=== PATIENT | male | born 1985 | race African-American/Black ===

== ENCOUNTER → 2020-08-16 13:49 | Outpatient (REF) | payer OTHER, SELFPAY ==
--- NOTE | 2020-08-16 13:54 | CA_ITS ---
Transthoracic Echocardiogram Patient (Last, First, Middle): Benjamín García, Gender: Male Date of : 1985 Age: 35 Procedure Date: 08/16/2020 Procedure Type: Transthoracic Echocardiogram Location: OP Height: 175.26 cm Weight: 95.26 kg BSA: 2.11 m2 Heart Rate: bpm BP: 122 / 68 mmHg Automatic Blocker: Referring MD: Justin Stahl [facility] Symptoms: R01.1 - Cardiac murmur, unspecified Study Quality: Good ECG Rhythm: Sinus Conclusions: - Normal left ventricular size and systolic function. - There is mildly increased left ventricular wall thickness. - Diastolic function is normal for age. - No significant valvular pathology noted. Findings Left Ventricle Normal left ventricular size and systolic function. There is mildly increased left ventricular wall thickness. The visually estimated ejection fraction is between 55-60%. There is no evidence of regional wall motion abnormalities. Diastolic function is normal for age. Right Ventricle Normal right ventricular cavity size and systolic function. Atria Both atria are normal in size. There is no evidence of interatrial shunt by color Doppler. Aortic Valve Normal aortic valve structure and function. There is no aortic valve stenosis. There is no aortic valve regurgitation. Mitral Valve Normal mitral valve structure and function. There is no mitral valve regurgitation. There is no mitral valve stenosis. Pulmonic Valve Normal pulmonic valve structure and function. There is trace pulmonic valve regurgitation. Tricuspid Valve Normal tricuspid valve structure and function. There is trace tricuspid valve regurgitation. Normal right atrial pressure. There is no evidence of pulmonary hypertension. Great Vessels All visible segments of the aorta are normal in size. The visualized portions of the pulmonary artery and branches are normal. Venous The inferior vena cava is normal in size and collapses greater than 50% with inspiration. Pericardium/Pleural There is no evidence of pericardial effusion. Prior Study Comparison No prior study available for comparison. Measurements 2D Linear Measurements IVSd: 1.15 0.6-0.9/0.6-1.0 cm LVIDd: 5.13 3.9-5.3/4.2-5.9 cm LVIDd Index: 2.43 2.4-3.2/2.2-3.1 cm/m2 LVIDs: 3.16 2.0-3.6 cm LVPWd: 1.15 0.7-1.1 cm Ao Root: 3.10 2.1-3.5 cm LA Diam: 4.00 2.7-3.8/3.0-4.0 cm LAIDs Index: 1.90 1.5-2.3 cm/m2 LV Mass: 286.17 67-162/88-224 g LV Mass Index: 135.63 43-95/49-115 g/m2 LVOT Diam: 2.50 3.0+(-)1.3 cm Mitral Valve MV Pk E: 1.00 MV PK A: 0.89 MV Decel Time: 155.00 E/A: 1.10 E'Lateral: 15.10 E'Medial: 11.50 E/E' Med: 8.70 E/E' Lat: 6.60 PHT: 45.00 MVA PHT: 4.89 Decel [place]: 6.48 Aortic Valve AoV Pk Arnel: 1.64 AoV Mn Arnel: 1.01 AoV VTI: 0.31 AoV Pk Grad: 11.00 Aov Mn Grad: 5.00 ZAID Cont.VTI: 3.17 LVOT LVOT Pk Arnel: 1.15 LVOT Mn Arnel: 0.75 LVOT VTI: 0.20 LVOT Pk Grad: 5.00 LVOT Mn Grad: 3.00 LVOT Diam: 2.50 LVOT Area: 4.91 Diastolic Function MV Pk E: 1.00 MV Pk A: 0.89 E/A: 1.10 E'Medial: 11.50 E/E' Med: 8.70 E' Laterial: 15.10 E/E' Lat: 6.60 Tricuspid Valve TR Pk Arnel: 2.17 TR Pk Grad: 19.00 RA Press: 3.00 RVSP: 22.00 Great Vessels Aorta Ao Root-2D: 3.10 2.0-3.7 cm Ao Asc: 3.00 2.1-3.4 cm Pulmonary Valve PV Pk Arnel: 1.41 Peak PV Grad: 8.00 Updated in Other Vendor System with Status of Final Claudy Contreras MD electronically signed on 08/18/2020 6:41:13 AM with status of Final
== END ==
LOC: HO.CARD 13:49
PROVIDERS: PCP Nurse Practitioner Family; Visit Provider Nurse Practitioner Family
DX: R01.1 Cardiac murmur, unspecified (principal)
CPT/HCPCS: 93306

== ENCOUNTER 2020-09-09 11:30 | Outpatient (REF) | payer OTHER, SELFPAY ==
[2020-09-09 14:15] LABS: Alanine Aminotransferase 27 U/L (0-40); Albumin Level 4.4 g/dL (3.5-5.0); Alkaline Phosphatase 32 U/L (39-117); Anion Gap 12 (12-20); Aspartate Amino Transferase 25 U/L (5-37); Bilirubin Total 0.7 mg/dL (0.0-1.0); Blood Urea Nitrogen 14 mg/dL (9-16); Calcium 9.1 mg/dL (8.4-10.2); Carbon Dioxide 27 mmol/L (22-29); Chloride 103 mmol/L (96-108); Cholesterol 170 mg/dL; Estimated Glomerular Filt Rate > 60; Glucose Fasting 90 mg/dL (60-99); HDL Cholesterol 51 mg/dL; LDL Cholesterol Calculated 109 mg/dl; Potassium 4.1 mmol/L (3.3-5.1); Sodium 138 mmol/L (135-145); Total Protein 7.2 g/dL (6.5-8.0); Triglycerides 51 mg/dL
[2020-09-09 14:37] LABS: TSH reflex Free T4 1.01 uIU/mL (0.32-4.0)
== END 2020-09-09 11:31 | disposition home or self-care (01) ==
LOC: HO.HMGCLDS 11:30
PROVIDERS: PCP Nurse Practitioner Family; Visit Provider Nurse Practitioner Family
DX: Z00.00 Encounter for general adult medical examination without abnormal findings (principal)
CPT/HCPCS: 36415; 80053; 80061; 84443

== ENCOUNTER → 2020-10-01 13:27 | Outpatient (REF) | payer OTHER, SELFPAY ==
--- NOTE | 2020-10-01 | ECG_ITS ---
Hook-up date: 2020-10-01 13:43:00 Duration: 47:59:00 Test Indications: PALPITATIONS Medications: [id number] QRS complexes 5 Ventricular ectopics which represent <1 % of total QRS comp. 5 Supraventricular ectopics which represent <1 % of total QRS comp. * Paced QRS complexs which represent % of total QRS comp. VENTRICULAR ECTOPY 5 Isolated 0 Bigeminal Cycles 0 Couplets 0 Runs 0 Beats in Runs * Beats LONGEST at * BPM at :: -- * Beats FASTEST at * BPM at :: -- SUPRAVENTRICULAR ECTOPY 3 Isolated 1 Couplets 0 Runs 0 Beats in Runs * Beats LONGEST at * BPM at :: -- * Beats FASTEST at * BPM at :: -- HEART RATES 37 MIN at 04:26:10 2020-10-02 84 AVG 151 MAX at 20:06:35 2020-10-01 LONGEST RR 1.7680 secs at 04:26:09 2020-10-02 S-T LEVELS Channel 1 - 128 mm at 13:43:00 2020-10-01 - 128 mm at 13:43:00 2020-10-01 Channel 2 - 128 mm at 13:43:00 2020-10-01 - 128 mm at 13:43:00 2020-10-01 Channel 3 - 128 mm at 03:30:21 -- - 128 mm at 03:30:21 Basic rhythm Normal sinus rhythm No long pause or profound bradycardia No dangerous dysrhythm periods No diary submitted Referred By: Justin Stahl Overread By: JAX LUJAN MD
== END ==
LOC: HO.CARD 13:27
PROVIDERS: PCP Nurse Practitioner Family; Visit Provider Nurse Practitioner Family
DX: R00.2 Palpitations (principal)
CPT/HCPCS: 93225; 93226

== ENCOUNTER 2020-10-25 08:58 | Outpatient (REF) | payer OTHER, SELFPAY | END 2020-10-25 08:59 | disposition home or self-care (01) | LOC: HO.HMGCLDS 08:58 | PROVIDERS: PCP Nurse Practitioner Family; Visit Provider Internal Medicine | DX: Z20.822 Contact with and (suspected) exposure to COVID-19 (principal) | CPT/HCPCS: 36415; C9803; U0003; U0005 ==

== ENCOUNTER 2020-10-28 09:04 | Outpatient (REF) | payer OTHER, SELFPAY | END 2020-10-28 09:05 | disposition home or self-care (01) | LOC: HO.HMGCLDS 09:04 | PROVIDERS: PCP Nurse Practitioner Family; Visit Provider Internal Medicine | DX: Z20.822 Contact with and (suspected) exposure to COVID-19 (principal) | CPT/HCPCS: 36415; C9803; U0003; U0005 ==

== ENCOUNTER → 2020-12-26 14:45 | Outpatient (BNVA) | payer OTHER, SELFPAY | PROVIDERS: PCP Nurse Practitioner Family; Visit Provider Internal Medicine | DX: J45.909 Unspecified asthma, uncomplicated (principal); Z79.51 Long term (current) use of inhaled steroids | CPT/HCPCS: 99202 ==

== ENCOUNTER 2021-01-02 15:40 | Outpatient (REF) | payer OTHER, SELFPAY ==
--- NOTE | 2021-01-02 17:05 | PFT_ITS ---
INDICATIONS: Shortness of breath and wheezing. SPIROMETRY: The FEV1 to FVC of 66% with an FEV1 of 2.83 L, which is 93% of predicted and an FVC of 4.32 L, which is 118% predicted. No significant response to bronchodilators noted. To note, there was significant small airways disease and the maximum voluntary ventilation 74% predicted. LUNG VOLUMES: Total lung capacity 97% predicted with the diffusion capacity, DLCO 117% predicted. COMPARISONS: None available. INTERPRETATION: There is an obstructive ventilatory defect consistent with mild COPD. In addition to that, the patient did have significant small airways disease identified. No significant response to bronchodilators noted. There was a mild decrease in maximum voluntary ventilation. Lung volumes are normal except for decrease in the expiratory reserve volume secondary to an elevated BMI. Diffusion capacity is high normal, therefore exogenous exposures to carbon monoxide need to be considered. Clinical correlation warranted. Kamran Montes MD MR/MODL / [id number]
== END 2021-01-02 15:41 | disposition home or self-care (01) ==
LOC: HO.RESP 15:40
PROVIDERS: PCP Nurse Practitioner Family; Visit Provider Internal Medicine
DX: R06.02 Shortness of breath (principal); J45.909 Unspecified asthma, uncomplicated
CPT/HCPCS: 94060; 94727; 94729